=== PATIENT | male | born 1995 | race Caucasian/White ===

== ENCOUNTER 2021-01-14 09:55 | Emergency (ER) | payer OTHER ==
[~2021-01-14] VITALS: Ht 180.3 cm; Wt 68.2 kg
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
[2021-01-14 12:02] VITALS: BP 130/69
== END 2021-01-14 13:16 | disposition home or self-care (01) ==
LOC: ER 09:55
DX: G89.18 Other acute postprocedural pain (principal); F17.200 Nicotine dependence, unspecified, uncomplicated; Z98.890 Other specified postprocedural states
CPT/HCPCS: 99281